=== PATIENT | female | born 1955 | race Caucasian/White ===

== ENCOUNTER 2016-10-22 10:28 | Outpatient (CLI) | payer MEDICARE ==
[2016-10-22 12:00] LABS: #Basophils 0.1 thou/uL (0.0-0.2); #Eosinphils 0.1 thou/uL (0.0-0.7); #Lymphocytes 1.5 thou/uL (1.20-3.40); #Monocytes 0.6 thou/uL (0.11-0.59); #Neutrophils 2.6 thou/uL (1.40-6.50); %Basophils 1.1 % (0.0-1.0); %Monocytes 11.5 % (0.0-10.0); Hematocrit 45.2 % (36.0-47.0); Mean Platelet Volume 6.7 fL (7.4-10.4); Red Blood Cell (RBC) Count 4.62 mill/uL (4.20-5.40); White Blood Cell (WBC) Count 4.8 thou/uL (4.8-10.8)
[2016-10-22 12:04] LABS: Bilirubin Negative (Negative); Blood, Urine Negative (Negative); Glucose, Urine (Dipstick) Negative (Negative); Ketone, Urine Negative (Negative); Nitrite Negative (Negative); Protein, Urine (Dipstick) Negative (Neg-Trace); Urobilinogen 0.2 mg/dL (0.2-1.0)
[2016-10-22 12:06] LABS: ALT (SGPT) 53 U/L (0-55); AST (SGOT) 41 U/L (5-34); Alkaline Phosphatase 70 U/L (40-150); Anion Gap 13 mmol/L (10-20); BUN (Urea Nitrogen) 10 mg/dL (9.8-20.1); Bilirubin, Total 0.4 mg/dL (0.2-1.2); Calc. Creatinine Clearance 0 mL/min (70-130); Calcium 9.3 mg/dL (7.8-10.44); Carbon Dioxide 28 mmol/L (22-29); Chloride 104 mmol/L (98-107); Estimated GFR-MDRD 83; Globulin 3.2 g/dL (2.4-3.5); Protein, Total 7.4 g/dL (6.0-8.3)
[2016-10-22 12:50] LABS: Bacteria/HPF Rare-Few HPF (None Seen); RBC/HPF 0-3 HPF (0-3); Squamous Epithelial 0-3 HPF (0-3); WBC/HPF 0-3 HPF (0-3)
== END 2016-10-22 10:29 ==
LOC: HPCALD 10:28
PROVIDERS: ATTEND Family Medicine
DX: I10 Essential (primary) hypertension (principal)
CPT/HCPCS: 36415; 80053; 81001; 84443; 85025

== ENCOUNTER 2016-10-26 13:25 | Outpatient (CLI) | payer MEDICARE | END 2016-10-26 13:26 | disposition home or self-care (01) | LOC: HPCALD 13:25 | PROVIDERS: ATTEND Family Medicine | DX: I10 Essential (primary) hypertension (principal) | CPT/HCPCS: 36415; 80061 ==

== ENCOUNTER 2016-11-22 09:23 | Outpatient (CLI) | payer MEDICARE ==
[2016-11-22 11:19] LABS: Anion Gap 13 mmol/L (10-20); BUN (Urea Nitrogen) 8 mg/dL (9.8-20.1); Calc. Creatinine Clearance 0 mL/min (70-130); Calcium 9.7 mg/dL (7.8-10.44); Carbon Dioxide 23 mmol/L (22-29); Chloride 106 mmol/L (98-107); Estimated GFR-MDRD 86; Glucose 98 mg/dL (70-105); Potassium 4.4 mmol/L (3.5-5.1); Sodium 138 mmol/L (136-145); Uric Acid 4.7 mg/dL (2.6-6.0)
== END 2016-11-22 09:24 | disposition home or self-care (01) ==
LOC: HPCALD 09:23
PROVIDERS: ATTEND Family Medicine
DX: M25.462 Effusion, left knee (principal); I10 Essential (primary) hypertension
CPT/HCPCS: 36415; 80048; 84550

== ENCOUNTER 2016-11-23 09:48 | Outpatient (CLI) | payer MEDICARE ==
--- NOTE | 2016-11-23 17:23 | ULT ---
LEFT LOWER EXTREMITY VENOUS ULTRASOUND 11/23/16 Ultrasonography of the left lower extremity was performed. All deep veins were freely compressible f rom groin to ankle. There was no echogenic clot seen. There was normal doppler response to augmentat ion maneuvers. There is a vague cystic area in the popliteal fossa with some debris in it. It measured 3.0 x 1.4 x 3.0 cm and is most likely a Smith's cyst. IMPRESSION: 1. No evidence for DVT. 2. Presumed complex Smith's cyst, popliteal fossa. POS: HOME
== END 2016-11-23 09:49 | disposition home or self-care (01) ==
LOC: BURULT 09:48
PROVIDERS: ATTEND Family Medicine
DX: M25.462 Effusion, left knee (principal); M79.662 Pain in left lower leg

== ENCOUNTER 2018-07-14 16:27 | Outpatient (CLI) | payer MEDICARE ==
--- NOTE | 2018-07-14 21:09 | RAD ---
LEFT SHOULDER THREE VIEWS: Date: 07-14-19 FINDINGS: A healing fracture of the proximal humerus is seen. It appears to go through the anatomical neck of t he humerus and extend into the greater tubercle. Displacement is present but minimal. There is no dis location of the humeral head. The scapula and clavicle appear intact. The AC joint is normal in width . IMPRESSION: Healing fracture through the anatomical neck and greater tubercle of the humerus. Code T POS: HOME
== END 2018-07-14 16:28 | disposition home or self-care (01) ==
LOC: BURRAD 16:27
PROVIDERS: ATTEND Family Medicine
DX: M25.512 Pain in left shoulder (principal); S42.292D Other displaced fracture of upper end of left humerus, subsequent encounter for fracture with routine healing

== ENCOUNTER 2019-11-19 21:36 | Emergency (ER) | payer MEDICARE ==
[2019-11-19] MEDS ORDERED: traMADol HCl 50 MG TAB ONE (22:27)
--- NOTE | 2019-11-19 23:42 | RAD ---
CHEST TWO VIEWS: 11/19/19 Comparison is made with an 07/23/11 study. The heart is normal in size and the lungs are clear. Both lungs are fully inflated. There are no effu sions. No fractures were appreciated. The sternum appears intact on the lateral view. The mediastinu m shows no widening or shift. IMPRESSION: No acute thoracic finding. POS: HOME
== END 2019-11-19 22:53 | disposition home or self-care (01) ==
LOC: BURERS 21:36
DX: S20.219A Contusion of unspecified front wall of thorax, initial encounter (principal); J44.9 Chronic obstructive pulmonary disease, unspecified; M94.0 Chondrocostal junction syndrome [Tietze]; J06.9 Acute upper respiratory infection, unspecified; F32.9 Major depressive disorder, single episode, unspecified; F17.210 Nicotine dependence, cigarettes, uncomplicated; Z79.899 Other long term (current) drug therapy; Y04.8XXA Assault by other bodily force, initial encounter
CPT/HCPCS: 71046

== ENCOUNTER 2019-11-28 14:10 | Emergency (ER) | payer MEDICARE ==
[2019-11-28] MEDS ORDERED: Dexamethasone 4 mg/ml Vial ONE (14:45)
--- NOTE | 2019-11-28 19:36 | RAD ---
CHEST TWO VIEWS: 11/28/19 Comparison is made with a 11/18 study. The heart is normal in size. The mediastinum shows no widening or shift. The lungs are fully inflated and clear. There are no effusions. No fractures were appreciated. As best as I can tell on the later al view, the sternum appears intact. IMPRESSION: No acute thoracic findings. POS: HOME
== END 2019-11-28 14:55 | disposition home or self-care (01) ==
LOC: BURERS 14:10
DX: R07.89 Other chest pain (principal); J44.9 Chronic obstructive pulmonary disease, unspecified; F32.9 Major depressive disorder, single episode, unspecified; F17.210 Nicotine dependence, cigarettes, uncomplicated; Z79.899 Other long term (current) drug therapy
CPT/HCPCS: 71046; 96374; J1100

== ENCOUNTER 2024-02-25 14:12 | Emergency (ER) | payer MEDICARE ==
[2024-02-25 14:39] LABS: Bilirubin Moderate (Negative); Blood, Urine Negative (Negative); Clarity Cloudy (Clear); Glucose, Urine (Dipstick) 100 mg/dL (Negative); Ketone, Urine 15 mg/dL (Negative); Leukocyte Small (Negative); Nitrite Negative (Negative); Protein, Urine (Dipstick) 30 mg/dL (Neg-Trace); Specific Gravity, Urine 1.025 (1.005-1.030)
[2024-02-25 14:45] LABS: Bacteria/HPF 2+ HPF (None Seen); CAUTI Indications for Culture Dysuria,urgency,freq; RBC/HPF None Seen HPF (0-3); Squamous Epithelial 0-3 HPF (0-3)
[2024-02-25 14:46] LABS: Urine Culture Reflex No No
== END 2024-02-25 15:14 | disposition home or self-care (01) ==
LOC: BURERS 14:12
DX: S20.312A Abrasion of left front wall of thorax, initial encounter (principal); N39.0 Urinary tract infection, site not specified; F17.210 Nicotine dependence, cigarettes, uncomplicated; X50.9XXA Other and unspecified overexertion or strenuous movements or postures, initial encounter
CPT/HCPCS: 81001; 99283